=== PATIENT | female | born 1985 | race Hispanic/Latino ===

== ENCOUNTER 2021-02-25 11:06 | Emergency (ER) | payer MEDICAID ==
[2021-02-25 11:19] VITALS: BP 121/75
--- NOTE | 2021-02-25 12:46 | Emergency Department Report ---
ED General Adult HPI - General Chief complaint: Abdominal Pain Stated complaint: CHEST AND STOMACH PAIN PUI?: No Time Seen by Provider: 02/25/21 12:16 Source: patient Mode of arrival: Ambulatory Limitations: No Limitations - History of Present Illness Initial comments: 35-year-old female with a past medical history of asthma presents to the ER today with complaints of upper abdominal pain and left chest pain. Patient states that she has been having intermittent pain in her left chest for the past week. She describes it as a stabbing pain which is worse when she takes deep breaths and sometimes when she moves too fast. She denies any associated cough, wheezing, shortness of breath, calf pain or lower extremity swelling. She states that she had similar episodes of chest pain last year and she states that she did get seen in the ER for it and it was told was likely related to stress. 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 She describes moderate discomfort with associated nausea and it has been intermittent in nature. She states that she is concerned about . She states that her last menstrual cycle was sometime in January 2021. She denies any abnormal vaginal symptoms. She is not on any control. She denies any vomiting. She states that her last bowel movement was today. She denies any diarrhea. She reports urinary frequency but denies dysuria. She denies any fever or chills. She denies any recent travel or any ill contacts. She has not taken any of the COVID-19 vaccines. She denies any tobacco use or illicit drug use. She denies any history of PE or DVT and denies any risk factors for DVT or PE. She denies any family history of heart disease. She denies any abdominal surgeries. Complaint: Upper abdominal pain/chest pain -: week(s) (1) - Related Data Previous Rx's Medication Instructions Recorded Last Taken Type Famotidine [Pepcid] 20 mg PO BID #30 tablet 02/25/21 Unknown Rx Ondansetron [Zofran Odt] 4 mg PO Q8HR PRN #15 tab.rapdis 02/25/21 Unknown Rx Allergies Allergy/AdvReac Type Severity Reaction Status Date / Time No Known Allergies Allergy Verified 02/25/21 11:15 ED Review of Systems ROS: Stated complaint: CHEST AND STOMACH PAIN Other details as noted in HPI Comment: All other systems reviewed and negative Constitutional: denies: chills, fever Eyes: denies: eye pain, eye discharge, vision change ENT: denies: ear pain, throat pain Respiratory: denies: cough, shortness of breath, SOB with exertion, SOB at rest, stridor, wheezing Cardiovascular: chest pain Endocrine: no symptoms reported Gastrointestinal: abdominal pain, nausea. denies: diarrhea, constipation, he matemesis, melena, hematochezia Genitourinary: denies: urgency, dysuria, frequency, hematuria, discharge, abnormal menses, dyspareunia Musculoskeletal: denies: back pain, joint swelling, arthralgia Skin: denies: rash, lesions, change in color, change in hair/nails, pruritus Neurological: denies: headache, weakness, numbness, paresthesias, confusion, vertigo Psychiatric: denies: anxiety, depression, auditory hallucinations, visual hallucinations, homicidal thoughts, suicidal thoughts Hematological/Lymphatic: denies: easy bleeding, easy bruising, swollen glands ED Past Medical Hx - Past Medical History Previous Medical History?: No - Surgical History Past Surgical History?: No - Medications Home Medications: Home Medications Medication Instructions Recorded Confirmed Last Taken Type Famotidine [Pepcid] 20 mg PO BID #30 tablet 02/25/21 Unknown Rx Ondansetron [Zofran Odt] 4 mg PO Q8HR PRN #15 tab.rapdis 02/25/21 Unknown Rx ED Physical Exam - General Limitations: No Limitations General appearance: alert, in no apparent distress - Head Head exam: Present: atraumatic, normocephalic, normal inspection - Eye Eye exam: Present: normal appearance, PERRL, EOMI Pupils: Present: normal accommodation - ENT ENT exam: Present: normal exam, mucous membranes moist, TM's normal bilaterally - Neck Neck exam: Present: normal inspection, full ROM - Respiratory Respiratory exam: Present: normal lung sounds bilaterally, chest wall tenderness (mild left sided chest ttp). Absent: respiratory distress, wheezes, rales, rhonchi, stridor - Cardiovascular Cardiovascular Exam: Present: regular rate, normal rhythm, normal heart sounds - GI/Abdominal GI/Abdominal exam: Present: soft. Absent: distended, tenderness, guarding, rebound - Extremities Exam Extremities exam: Present: normal inspection, full ROM, normal capillary refill. Absent: tenderness, calf tenderness - Neurological Exam Neurological exam: Present: alert, oriented X3, CN II-XII intact, normal gait - Psychiatric Psychiatric exam: Present: normal affect, normal mood - Skin Skin exam: Present: intact ED Course Vital Signs 02/25/21 11:17 Temperature 99.1 F Pulse Rate 99 H Respiratory 16 Rate Blood Pressure 121/75 [Left] O2 Sat by Pulse 99 Oximetry ED Medical Decision Making - Lab Data Result diagrams: 02/25/21 12:34 02/25/21 12:34 - EKG Data EKG shows normal: sinus rhythm Rate: normal (79) - EKG Data Interpretation: LVH - Radiology Data Radiology results: report reviewed Patient: BEATA CAPPS MR#: [id number] : 1985 Acct:[id number] Age/Sex: 35 / F ADM Date: 02/25/21 Loc: ED Attending Dr: Ordering Physician: RADHA CLARK Date of Service: 02/25/21 Procedure(s): XR chest 1V ap Accession Number(s): [id number] cc: RADHA CLARK Fluoro Time In Minutes: XR chest 1V ap INDICATION / CLINICAL INFORMATION: Chest pain. COMPARISON: None available. FINDINGS: SUPPORT DEVICES: None. HEART /PULMONARY VASCULATURE: No significant abnormality. LUNGS / PLEURA: No significant pulmonary or pleural abnormality. No pneumothorax. ADDITIONAL FINDINGS: Circular radiodensity projecting over the upper mediastinum is presumed external. IMPRESSION: 1. No acute findings. 2. Incidental findings as above. Signer Name: Lacy Patel MD Signed: 02/25/2021 2:30 PM Workstation Name: [id number] Transcribed By: DEXTER Dictated By: LACY PATEL MD Electronically Authenticated By: LACY PATEL MD Signed Date/Time: 02/25/21 143 DD/ 28 TD/TT: - Medical Decision Making 6 ; all labs reviewed --CBC and CMP unremarkable. Troponin is negative. D- dimer is also negative. hCG positive, and quant hCG measured at 2803. Chest x- ray shows nothing acute. EKG shows normal sinus rhythm with possible left ventricular hypertrophy changes but otherwise no STEMI, acute ischemic changes or significant dysrhythmia. Patient currently sitting in the recliner comfortably. She is not in any acute distress. Patient main complaint epigastric abdominal discomfort, and on exam she had no abdominal tenderness and abdomen was soft. She has no lower abdominal complaints, or vaginal complaints and therefore abdominal CT nor abdominal ultrasound or OB ultrasound indicated at this time. I discussed all lab results, and chest x-ray results with patient. Informed her of positive test, and she states that she is not sure she is going to keep it. Patient did have some reproducible chest wall tenderness on exam, and informed her that her pain could be related to musculoskeletal pain. At this time with a negative D-dimer however very low suspicion that she has a PE, and also she has no cardiac risk factors. I do not suspect unstable angina. At this time there is no indication for any admission to the hospital. Patient will be given referral information to [facility] just in case she decides to keep the baby as well as referral information to PCP. Informed her that the PCP can also refer her to cardiology especially if she still continues to have pain. He also understands that if at any point symptoms worsens in any way or she develops any vaginal or lower abdominal symptoms that she needs to return immediately to the ER. Patient expressed understanding of all instructions and agree with plan. Patient stable at time of discharge. Critical care attestation.: If time is entered above; I have spent that time in minutes in the direct care of this critically ill patient, excluding procedure time. ED Disposition Clinical Impression: Nonspecific chest pain, Epigastric pain, Disposition: HOME / SELF CARE / HOMELESS Is pt being admited?: No Does the pt Need Aspirin: No Condition: Stable Instructions: First Trimester of , [id number], Abdominal Pain, Adult, [id number], Nonspecific Chest Pain, Adult, [id number], Abdominal Pain (ED) Additional Instructions: I recommend that you take the Zofran as prescribed to help with any nausea. Given that you are , the safest thing to take for pain is Tylenol. If you continue to have pain in your upper abdomen/epigastric area could be related to gastritis and therefore recommend that you take Pepcid as prescribed. I recommend that you follow-up with one of the [facility] listed on your discharge instructions for establishing care. Return to the ER if at any point your if your chest pain, or upper abdominal pain worsens, also with development of low abdominal pain and vaginal bleeding, fever or chills. Prescriptions: Famotidine [Pepcid] 20 mg PO BID #30 tablet Ondansetron [Zofran Odt] 4 mg PO Q8HR PRN #15 tab.rapdis PRN Reason: Nausea/vomiting Referrals: [facility] [Provider Group] - 3-5 Days [facility] [Provider Group] - 3-5 Days Forms: Work/School Release Form(ED) Time of Disposition: 17:09
[2021-02-25 13:18] LABS: Basophils % (Auto) 0.1 % (0.0-1.8); Hematocrit 38.8 % (30.3-42.9); Hemoglobin 12.8 gm/dl (10.1-14.3); Lymphocytes # (Auto) 1.2 K/mm3 (1.2-5.4); Lymphocytes % (Auto) 20.1 % (13.4-35.0); Mean Corpuscular HGB Conc 33 % (30-34); Mean Corpuscular Volume 93 fl (79-97); Monocytes # (Auto) 0.3 K/mm3 (0.0-0.8); Monocytes % (Auto) 4.8 % (0.0-7.3); Platelet Count 240 K/mm3 (140-440); Red Blood Count 4.16 M/mm3 (3.65-5.03); Red Cell Distribution Width 14.3 % (13.2-15.2)
[2021-02-25 13:43] LABS: Alanine Aminotransferase 6 units/L (7-56); Albumin 4.3 g/dL (3.9-5); Blood Urea Nitrogen 8 mg/dL (7-17); Calcium 8.9 mg/dL (8.4-10.2); Hemolysis Index 11
[2021-02-25 13:46] LABS: BUN/Creatinine Ratio 11
[2021-02-25 14:18] LABS: Bilirubin,Urine NEG (Negative); Blood,Urine NEG (Negative); Color,Urine Straw (Yellow); Mucus,Urine FEW /HPF; Protein,Urine <15 mg/dL mg/dL (Negative); Urobilinogen,Urine < 2.0 mg/dL (<2.0)
--- NOTE | 2021-02-25 14:35 | XRay Report ---
XR chest 1V ap INDICATION / CLINICAL INFORMATION: Chest pain. COMPARISON: None available. FINDINGS: SUPPORT DEVICES: None. HEART /PULMONARY VASCULATURE: No significant abnormality. LUNGS / PLEURA: No significant pulmonary or pleural abnormality. No pneumothorax. ADDITIONAL FINDINGS: Circular radiodensity projecting over the upper mediastinum is presumed external . IMPRESSION: 1. No acute findings. 2. Incidental findings as above. Signer Name: Harry Patel MD Signed: 02/25/2021 2:30 PM Workstation Name: [id number]
--- NOTE | 2021-02-27 10:24 | Electrocardiograph Report ---
[facility] Test Date: 2021-02-25 Test Time: 12:56:34 Pat Name: BEATA CAPPS Department: Room: Gender: F Electric Truck Driver: DES : 1985 Requested By: BLU FAGAN Order Number: [id number] Reading MD: Alexia Angel Measurements Intervals [place] Rate: 79 P: 38 DC: 101 QRS: 63 QRSD: 96 T: 1 QT: 377 QTc: 434 Interpretive Statements Sinus rhythm Consider left ventricular hypertrophy No previous ECG available for comparison Electronically Signed On 02-27-2021 10:23:52 EDT by Alexia Angel
== END 2021-02-25 17:52 | disposition home or self-care (01) ==
LOC: ED 11:06
DX: R10.13 Epigastric pain (principal); R07.9 Chest pain, unspecified; O26.899 Other specified pregnancy related conditions, unspecified trimester; Z3A.00 Weeks of gestation of pregnancy not specified
CPT/HCPCS: 36415; 71045; 80053; 81001; 83690; 84484; 84702; 84703; 85025; 85379; 93005; 99283